=== PATIENT | male | born 1980 | race Caucasian/White ===

== ENCOUNTER 2019-03-22 13:00 | Inpatient (IN) ==
[2019-03-22] MEDS ORDERED: SODIUM CHLORIDE 0.9% 1000ML 2,000 ML IV ONE (13:14)
[2019-03-22 13:33] LABS: Basophils # (auto) 0.03 K/uL (0-0.2); Basophils % (auto) 0.5 %; Eosinophils # (auto) 0.55 K/uL (0-0.5); Eosinophils % (auto) 9.2 %; Hematocrit (blood only) 42.5 % (42-52); Hemoglobin 14.9 g/dL (14.0-18.0); Immature Granulocytes # (auto) 0.01 K/uL (0.00-0.02); Immature Granulocytes % (auto) 0.2 %; Lymphocytes # (auto) 1.79 K/uL (1.2-3.4); Lymphocytes % (auto) 29.9 %; Mean Corpuscular Hgb Conc 35.1 g/dL (32-36); Mean Corpuscular Volume 82.2 fL (80-100); Mean Platelet Volume 9.8 fL (7.4-10.4); Monocytes # (auto) 0.91 K/uL (0.11-0.59); Monocytes % (auto) 15.2 %; Neutrophils # (auto) 2.69 K/uL (1.4-6.5); Platelet Count 248 K/uL (130-400); RDW Coefficient of Variation 14.1 % (11.5-14.5); RDW Standard Deviation 42.3 fL (36.4-46.3); Red Blood Count 5.17 M/uL (4.7-6.1); White Blood Count 5.98 K/uL (4.8-10.8)
[2019-03-22 13:34] LABS: Appearance Urine Clear (Clear); Bilirubin Urine Negative (Negative); Blood Urine Negative (Negative); Color Urine Yellow; Glucose Urine UA Negative (Negative); Ketones Urine Negative (Negative); Leukocyte Esterase Urine Negative (Negative); Nitrite Urine Negative (Negative); Protein Urine Negative (Negative); Specific Gravity Urine 1.006 (1.000-1.030); Urobilinogen Urine Negative (Negative)
[2019-03-22 13:48] LABS: BUN Creatinine Ratio 8.2 (10-20); Calcium 8.7 mg/dl (8.5-10.1); Creatinine Clr Calc Pharmacy 114.7 ml/min; Est GFR (African American) 127.5; Potassium 3.3 mmol/L (3.5-5.1)
[2019-03-22 13:55] LABS: Albumin Level 3.6 gm/dl (3.4-5.0)
[2019-03-22 13:58] LABS: Bilirubin Direct 2.5 mg/dl (0-0.2); Bilirubin,Total 3.1 mg/dl (0.2-1); Total Protein 7.2 gm/dl (6.4-8.2)
--- NOTE | 2019-03-22 14:54 | Ultrasound Report ---
ABDOMINAL ULTRASOUND, RIGHT UPPER QUADRANT HISTORY: ruq abd pain fevers abd jaundice. COMPARISON: None. FINDINGS: Pancreas: The pancreatic head is obscured by overlying bowel gas. The remaining portions of the pancr eas are within normal limits. Liver: The liver is echogenic consistent with fatty change. Gallbladder: No gallbladder wall thickening. No gallstones. CBD: 5 mm. Right kidney: No hydronephrosis. IMPRESSION: 1. Hepatic steatosis. 2. Normal gallbladder. No gallstones. Electronically signed by: Jose Manuel Meneses M.D. 03/22/2019 2:53 PM
[2019-03-22] MEDS ORDERED: PIPERACILLIN/TAZOBACTAM 4.5 GM/120 ML BAG IV ONE (15:06)
[2019-03-22] MEDS ORDERED: PIPERACILL/TAZOBAC CONSULT ACTIVE PRN ×2 (15:06→16:30)
--- NOTE | 2019-03-22 16:14 | History & Physical Report ---
Date of Service March 22, 2019 Assessment & Plan (1) Right upper quadrant abdominal pain: RUQ abdominal pain in a 38 yo male with hyperbilirrubinemia Patient will be admitted to med/surg. Patient will be placed on NPO. Reviewed imaging, no signs of acute cholecystitis Patient does have h.o IV drug use. Will obtain hepatitis panel in AM. Will order MRCP. Will consult GI. Will hold off acetaminophen for now. Given that he does not have an acute abdomen will hold off surgical consult. Updated and patient. Answered all of their questions. DVT: patient will be ambulating. History of Present Illness Primary Care Provider: NO PCP 38 yo male presents to the [facility] with RUQ abdominal pain which occured 3 days ago. Patient went to [facility] and was discharged from the ED as all labs were normal. Today patient developed a fever which was subjective. This was accompanied by lightheadedness and started first at 3 am. Pain then at 8am. It was located at RUQ and radiated to the epigastric region. Pain would last an hour. and have periods of no pain for about a half hour. Pain was sharp. PAIN WAS ABOUT AN 8/10. Throughout the day, pain has been decreasing in intensity however, patient also noticed being jaundiced which prompted the patient to come into the hospital. Allergies Allergy/AdvReac Type Severity Reaction Status Date / Time mold AdvReac Swelling Unverified 03/22/19 13:49 of the Eye Home Medications Home Medications Medication Instructions Recorded Confirmed Type No Known Home Medications 03/22/19 03/22/19 History Past Med/Surg History Medical History No significant past medical history Family History Other No significant family history Social History Preferred Language: Croatian Communication Ability: Effective Cuprous Chloride Helper Required: No Beliefs That Will Affect Care: None marital status: Current Living Situation: Family current occupational status: employed Other Information That Helps Us Care for You: No Feels Safe at Home: Yes Safety Concerns: Feels Safe At This Time Smoking Status: Never smoker Hx Alcohol Use: No Hx Substance Use: No Review of Systems Constitutional: + fever and + body aches; no sweats Eyes: no blind spots and no discharge Ear, Nose, Mouth, Throat: no ear trauma and no sinus pain/pressure Respiratory: no cough, no dyspnea and no pain on inspiration Cardiovascular: no chest pain and no chest pain with activity Gastrointestinal: + nausea; no abdominal pain, no heartburn and no vomiting Musculoskeletal: no back pain Psychiatric: no behavioral changes and no anhedonia Endocrine: + fatigue; no polyphagia and no heat intolerance Hematologic / Lymphatic: no easy bleeding Allergy / Immunological: no lip swelling Physical Exam Constitutional: WD/WN, vitals as above well developed ENMT: external ear and nose normal, oropharynx normal Neck: trachea midline, no thyromegaly Respiratory: normal respiratory effort, lungs clear to auscultation Cardiovascular: RRR, no murmur, no edema Gastrointestinal (Abdomen): Inspection/Auscultation: abdomen normal to inspection Percussion/Palpation: + abdomen tender (RUQ tenderness, no rebound) and abdomen soft; no guarding and abdomen not rigid Musculoskeletal: no cyanosis or clubbing, extremities motor strength 5/5 Skin: no rashes, warm and dry Neurologic: normal touch/pain/proprioception Psychiatric: A+Ox3, euthymic affect Lymphatic: no cervical or axillary lymphadenopathy Results & Data Vital Signs (Past 12 Hours) Vital Signs Temp Pulse Pulse Resp BP BP Pulse Ox 03/22/19 14:47 84 19 115/82 100 03/22/19 13:03 37.3 C 100 H 18 128/83 99
--- NOTE | 2019-03-22 18:26 | Emergency Department Note ---
Entered by Domitila Eugene acting as a scribe for History of Present Illness General Chief complaint: Abdominal Pain Stated complaint: ABD PAIN,FEVER Source: patient History of Present Illness Onset (ago): day(s) 3 Location: abdomen Pain Consistency: + other (persistent) Maximum Pain Intensity: 2 Quality: + dull Exacerbated By: not by eating Associated symptoms: + denies other symptoms (bowel changes) and + other (lightheadedness, change in urine color, excessive thirst, jaundice); no fever/chills The patient is a 38 year old male that is presenting to the Emergency Room with complaints of persistent dull right sided abdominal pain that started 3 days ago . The patient reports that he was seen in the hospital in [place] 3 days ago for extreme abdominal pain but a CT scan, Ultrasound, and blood work showed no acute disease. He states they discharged him with a suspected ulcer. 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 The patient reports that he had a fever of 102F at that time but notes that it has resolved since that time. He states that his last fever was yesterday which was 100.4F. He notes that he has excessive thirst even after drinking 64 oz of water today. He notes feeling mildly lightheaded currently. The patients partner notes that the patient started appearing jaundiced this morning. He denies any bowel changes or dysuria but notes that his urine is bright orange. He denies taking any antibiotics recently and states he has no significant medical history. Home Medications Home Medications Medication Instructions Recorded Confirmed Type No Known Home Medications 03/22/19 03/22/19 History Allergies Allergy/AdvReac Type Severity Reaction Status Date / Time mold AdvReac Swelling Unverified 03/22/19 13:49 of the Eye Past Med/Surg History Medical History No significant past medical history Family History Other No significant family history Social History marital status: Current Living Situation: Spouse current occupational status: employed Feels Safe at Home: Yes Smoking Status: Former smoker Review of Systems See HPI for pertinent positives & negatives. and A total of 10 systems reviewed and were otherwise negative Physical Exam Vital Signs Vital Signs - 24 hr 04/21/19 13:03 03/22/19 14:47 03/22/19 16:23 Temperature 37.3 C Temperature Source Oral Sepsis Recent Fever Within 48 Hours No Sepsis Action Taken by Nursing No Action Required Pulse Rate 100 H Pulse Rate [Right Finger] 84 78 Respiratory Rate 18 19 17 Respiratory Effort / Characteristics Non-Labored Non-Labored Spontaneous Respiratory Depth Normal Normal Respiratory Pattern Regular Blood Pressure 128/83 Blood Pressure [Left Arm] 115/82 107/73 Blood Pressure Mean 98 Blood Pressure Mean [Left Arm] 93 84 Blood Pressure Position Sitting Pulse Oximetry 99 100 98 Oxygen Delivery Method Room Air Room Air Room Air 03/22/19 17:30 Temperature Temperature Source Sepsis Recent Fever Within 48 Hours Sepsis Action Taken by Nursing Pulse Rate 90 Pulse Rate [Right Finger] Respiratory Rate 17 Respiratory Effort / Characteristics Respiratory Depth Respiratory Pattern Blood Pressure 108/73 Blood Pressure [Left Arm] Blood Pressure Mean Blood Pressure Mean [Left Arm] Blood Pressure Position Pulse Oximetry 98 Oxygen Delivery Method Room Air GENERAL: Sitting up in bed, alert, well appearing, well nourished, no distress, non-toxic EYE EXAM: normal conjunctiva, PERRL and EOM's grossly intact. scleral icterus OROPHARYNX: no exudate, no erythema, lips, buccal mucosa, and tongue normal and mucous membranes are moist NECK: supple, no nuchal rigidity, no adenopathy, non-tender LUNGS: Clear to auscultation. Normal chest wall mechanics HEART: no murmurs, S1 normal and S2 normal ABDOMEN: abdomen soft, normo-active bowel sounds, no masses, no rebound or guarding. +tenderness in right upper quadrant. BACK: Back is symmetrical on inspection and there is no deformity, no midline tenderness, no CVA tenderness. SKIN: no rashes and no bruising UPPER EXTREMITIES: upper extremities are grossly normal. LOWER EXTREMITIES: No pitting edema. NEURO EXAM: Normal sensorium, cranial nerves II-XII grossly intact, normal speech, no gross weakness of arms, no gross weakness of legs. Course ED COURSE: Vital signs were reviewed and showed tachycardia. The patients medical record was reviewed The above diagnostic studies were performed and reviewed. ED treatments and interventions as stated above. 1309: The patient was evaluated in room B02. A complete history and physical examination was performed. 1425: I updated the patient on his current lab and imaging results. 1519: I discussed the patient's case with [place] [facility] will evaluate the patient for further management and care. 1525: Upon reevaluation, the patient is resting comfortably. I discussed my findings with the patient and he understands and agrees with the treatment plan. Based on the patients age, coexisting illnesses, exam and lab findings the decision to treat as an inpatient was made. The patient remained stable while under my care. The patient will be evaluated for further management. Administered Medications Discontinued Medications Sodium Chloride (Nss 1000ml) 2,000 mls @ 999 mls/hr IV .Q2H1M ONE Stop: 03/22/19 15:14 Last Infusion: 03/22/19 15:20 Dose: 0 mls/hr Documented by: [id number] Admin: 03/22/19 13:28 Dose: 999 mls/hr Documented by: [id number] Piperacillin Sod/Tazobactam Sod (Zosyn) 4.5 gm in 120 mls @ 240 mls/hr IV NOW ONE Stop: 03/22/19 15:35 Last Infusion: 03/22/19 15:49 Dose: 0 mls/hr Documented by: [id number] Admin: 03/22/19 15:15 Dose: 240 mls/hr Documented by: [id number] Medical Decision Making Differential Diagnosis Differential diagnoses includes but is not limited to gastritis, peptic ulcer disease, GERD, gallbladder disease, pancreatitis, small bowel obstruction, acute coronary syndrome, pericarditis, ischemic bowel, irritable bowel disease, irritable bowel syndrome, appendicitis, diverticulitis, malignancy, hernia, urinary tract infection, torsion, perforation, trauma, infectious. Medical Records Attestation: I reviewed the patient's medical records. Home Medications Current Medication List: was personally reviewed by me Laboratory Data Attestation: I reviewed the patient's lab results. Result diagrams: 03/22/19 13:19 03/22/19 13:19 Lab Results 03/22/19 03/22/19 03/22/19 Range/Units 13:19 13:19 13:25 WBC 5.98 (4.8-10.8) K/uL RBC 5.17 (4.7-6.1) M/uL Hgb 14.9 (14.0-18.0) g/dL Hct 42.5 (42-52) % MCV 82.2 (80-100) fL MCH 28.8 (25-34) pg MCHC 35.1 (32-36) g/dL RDW Std Deviation 42.3 (36.4-46.3) fL RDW Coeff of Sage 14.1 (11.5-14.5) % Plt Count 248 (130-400) K/uL MPV 9.8 (7.4-10.4) fL Immature Gran % (Auto) 0.2 % Neut % (Auto) 45.0 % Lymph % (Auto) 29.9 % [place] % (Auto) 15.2 % Eos % (Auto) 9.2 % Baso % (Auto) 0.5 % Immature Gran # (Auto) 0.01 (0.00-0.02) K/uL Neut # (Auto) 2.69 (1.4-6.5) K/uL Lymph # (Auto) 1.79 (1.2-3.4) K/uL [place] # (Auto) 0.91 H (0.11-0.59) K/uL Eos # (Auto) 0.55 H (0-0.5) K/uL Baso # (Auto) 0.03 (0-0.2) K/uL Sodium 138 (136-145) mmol/L Potassium 3.3 L (3.5-5.1) mmol/L Chloride 105 (98-107) mmol/L Carbon Dioxide 26 (21-32) mmol/L Anion Gap 7.0 (3-11) BUN 7 (7-18) mg/dl Creatinine 0.89 (0.6-1.4) mg/dl Est Cr Clr Drug Dosing 114.7 ml/min Est GFR ( Amer) 127.5 Est GFR (Non-Af Amer) 110.0 BUN/Creatinine Ratio 8.2 L (10-20) Glucose 96 (70-99) mg/dl Calcium 8.7 (8.5-10.1) mg/dl Total Bilirubin 3.1 H (0.2-1) mg/dl Direct Bilirubin 2.5 H (0-0.2) mg/dl AST 85 H (15-37) U/L ALT 190 H (12-78) U/L Alkaline Phosphatase 216 H (45-117) U/L Total Protein 7.2 (6.4-8.2) gm/dl Albumin 3.6 (3.4-5.0) gm/dl Lipase 140 (73-393) U/L Urine Color Yellow Urine Appearance Clear (Clear) Urine pH 7.0 (4.5-7.5) Ur Specific [place] 1.006 (1.000-1.030) Urine Protein Negative (Negative) Urine Glucose (UA) Negative (Negative) Urine Ketones Negative (Negative) Urine Blood Negative (Negative) Urine Nitrite Negative (Negative) Urine Bilirubin Negative (Negative) Urine Urobilinogen Negative (Negative) Ur Leukocyte Esterase Negative (Negative) Imaging Data Radiologist's Impression: Radiology results as stated below per my review and the radiologist's interpretation: ABDOMINAL ULTRASOUND, RIGHT UPPER QUADRANT HISTORY: ruq abd pain fevers abd jaundice. COMPARISON: None. FINDINGS: Pancreas: The pancreatic head is obscured by overlying bowel gas. The remaining portions of the pancreas are within normal limits. Liver: The liver is echogenic consistent with fatty change. Gallbladder: No gallbladder wall thickening. No gallstones. CBD: 5 mm. Right kidney: No hydronephrosis. IMPRESSION: 1. Hepatic steatosis. 2. Normal gallbladder. No gallstones. Electronically signed by: Jose Manuel Meneses M.D. 03/22/2019 2:53 PM Blood Pressure Blood Pressure Findings: Normal blood pressure MDM Narrative Patient is a 38-year-old male who presents the ER for right upper quadrant abdominal pain which is been present since this past Saturday. He notes he has been having fevers of 101-102 intermittently at home. Pain was fairly consisten t but has dissipated slightly. He was seen in outside facility and had a CT and ultrasound done of his right upper quadrant which was unremarkable. He was discharged at that time. Presents today as he notes his eyes have become slightly yellow. On exam he does have scleral icterus. Vitals are u nremarkable. He does admit to fevers. Labs show no significant leukocytosis or anemia. BMP with mild hypokalemia. T bili is elevated at 3.1 with transaminitis in the 1-200s. Alk phos was elevated as well. Lipase was normal. UA was unremarkable. Ultrasound shows a normal gallbladder with a normal CBD at 5 mm. With his symptoms I am concerned for possible choledocholithiasis versus ascending cholangitis as he is having fevers and right upper quadrant pain with a transaminitis and elevated bilirubin. Patient was covered with IV antibiotics and IV fluids. He was updated bedside admit to the hospitalist for further workup. Impression & Plan Choledocholithiasis, Transaminitis, Elevated bilirubin Discharge Plan Visit Data Chief Complaint: Abdominal Pain Stated Complaint: ABD PAIN,FEVER ED Provider: Rafa Alvarado Discharge Problem: Choledocholithiasis, Transaminitis, Elevated bilirubin Patient Disposition: Being Evaluated by Hospitalist Discharge Instructions Interventions: ED Discharge Assessment Last Done: 03/22/19 17:30 The scribe's documentation has been prepared under my direction and personally reviewed by me in its entirety. I confirm that the note above accurately reflects all work, treatment, procedures, and medical decision making performed by me.
[2019-03-22] MEDS: PIPERACILLIN/TAZOBACTAM 3.375 GM in DEXTROSE 5% 100 ML IV SCH (19:58)
[2019-03-22] MEDS ORDERED: NAPROXEN 250 MG TAB PO STA (20:00)
[2019-03-22] MEDS: LACTATED RINGER'S 1,000 ML IV SCH (21:51)
[2019-03-22] MEDS ORDERED: PIPERACILLIN/TAZOBACTAM 3.375 GM in DEXTROSE 5% 100 ML IV SCH (23:30)
[2019-03-23] MEDS ORDERED: LORazepam 0.5 MG/1 ML VIAL IV STA (00:51)
[2019-03-23] MEDS ORDERED: KETOROLAC TROMETHAMINE 15 MG/ML VIAL IV ONE (02:50)
[2019-03-23] MEDS: PIPERACILLIN/TAZOBACTAM 3.375 GM in DEXTROSE 5% 100 ML IV SCH (04:11)
[2019-03-23 06:09] LABS: Basophils # (auto) 0.05 K/uL (0-0.2); Basophils % (auto) 0.9 %; Eosinophils # (auto) 0.74 K/uL (0-0.5); Eosinophils % (auto) 12.6 %; Immature Granulocytes # (auto) 0.01 K/uL (0.00-0.02); Immature Granulocytes % (auto) 0.2 %; Lymphocytes # (auto) 2.19 K/uL (1.2-3.4); Lymphocytes % (auto) 37.2 %; Mean Corpuscular Hgb Conc 34.2 g/dL (32-36); Mean Corpuscular Volume 82.6 fL (80-100); Monocytes % (auto) 11.9 %; Neutrophils # (auto) 2.19 K/uL (1.4-6.5); Neutrophils % (auto) 37.2 %; Platelet Count 227 K/uL (130-400); RDW Coefficient of Variation 14.4 % (11.5-14.5); RDW Standard Deviation 43.5 fL (36.4-46.3); White Blood Count 5.88 K/uL (4.8-10.8)
[2019-03-23 06:19] LABS: INR 1.1 (0.9-1.1)
[2019-03-23 06:43] LABS: BUN Creatinine Ratio 11.1 (10-20); Calcium 8.3 mg/dl (8.5-10.1); Creatinine Clr Calc Pharmacy 118.7 ml/min; Est GFR (African American) 129.3; Est GFR (Non-African American) 111.6; Potassium 3.6 mmol/L (3.5-5.1)
[2019-03-23 06:48] LABS: Bilirubin,Total 1.6 mg/dl (0.2-1)
[2019-03-23] MEDS: LACTATED RINGER'S 1,000 ML IV SCH ×2 (07:09→15:46)
--- NOTE | 2019-03-23 07:23 | Magnetic Resonance Report ---
MR MRCP HISTORY: 38 years-old Male ruq pain, acute right upper quadrant abdominal pain with fever and jaundi ce. COMPARISON: Right upper quadrant abdominal ultrasound 03/22/2019. TECHNIQUE: MRCP without the use of IV contrast was obtained according to institutional protocol. FINDINGS: The linoleum mechanic localizer images demonstrate no gross abnormality about the lower chest. The kidneys, splee n, pancreas, liver and bowel appear unremarkable. Aorta is unremarkable. No adenopathy identified. So ft tissues are unremarkable. Gallbladder is partially distended and demonstrates mild wall thickening measuring up to 5 mm. No cholelithiasis identified. No free fluid. Common bile duct is normal, 5 mm. No intrahepatic biliary ductal dilation. No pancreatic ductal dilation or pancreatic divisum. No yari ling defects within the biliary tree. No evidence of choledocholithiasis. IMPRESSION: Mild gallbladder wall thickening without cholelithiasis, biliary ductal dilation or choledocholithias is. The above report was generated using voice recognition software. It may contain grammatical, syntax o r spelling errors. Dictated: 03/23/2019 7:16 AM Transcribed: 03/23/2019 7:22 AM Kera [id number] [email or web address] Eduardo Electronically signed by: Tony Negrete M.D. 03/23/2019 7:51 AM
[2019-03-23 09:30] LABS: Hepatitis B Surface Antigen Neg (Neg)
[2019-03-23] MEDS ORDERED: AMPICILLIN/SULBACTAM SOD 3,000 MG in 0.9 % SODIUM CHLORIDE 100 ML IV SCH (12:00)
--- NOTE | 2019-03-23 17:44 | Consultation Report ---
DATE OF CONSULTATION: 03/23/2019 REASON FOR EVALUATION: Abnormal liver test and right upper quadrant pain. HISTORY OF PRESENT ILLNESS: The patient is a 38-year-old male who came to the hospital with right upper quadrant pain and mild jaundice. He also had low grade fever for about 3 days. When he was admitted to the hospital, his liver tests were noted to be abnormal and he underwent an ultrasound and an MRCP, both of which showed his liver and bile ducts to be normal. His gallbladder also looked normal. Subsequent testing showed him to be positive for hepatitis C antibody. On further questioning, the patient admits to be using intravenous drugs more than 15 years ago, but none since that time. He has never tested for hepatitis C and has been otherwise relatively asymptomatic. PAST MEDICAL HISTORY: Negative. MEDICATIONS: None. ALLERGIES: MOLD. FAMILY HISTORY: Negative. SOCIAL HISTORY: The patient is . He has 2 sons. 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 Does not smoke, does not drink any alcohol. REVIEW OF SYSTEMS: Positive for body aches and fever and some nausea and fatigue. Remainder is negative. PHYSICAL EXAMINATION: GENERAL: The patient appears in no acute distress. HEENT: He has large holes in his ear lobes from where they previously pierced. ABDOMEN: Soft. There was some mild tenderness in the upper gastric area and right upper quadrant. No masses or rebound. IMPRESSION AND PLAN: The patient has abnormal liver tests with positive serology for hepatitis C. I suspect that he has chronic hepatitis C. I think his fever recently is probably from an intercurrent infection of some other kind and it just exacerbated his hepatitis C blood test. At this point, I plan on getting hepatitis C RNA quantitatively. We will get genotype and FibroTest. Once we have this information from the reference lab, should take about a week. We should be able to offer him a treatment, most treatments now are 12 weeks and offer about 97%-98% cure rate. This can be arranged as an outpatient once he is discharged through our office.
--- NOTE | 2019-03-23 17:52 | Surgery Consultation ---
Date of Consultation March 23, 2019 Assessment & Plan (1) Right upper quadrant abdominal pain: 38 year-old male who presented to emergency room with complaint of fever, RUQ abdominal pain, and jaundice that began with fever and almost passing out. Emergency room work-up showed elevated t. bili and lfts. Ultrasound showing no stones nor evidence of acute cholecystitis. MRCP showing no gallstones, choledocholithiasis or signs of biliary obstruction. Hepatitis C antibiody preliminary is positive. Plan: RUQ pain is likely due to hepatitis and not acute cholecystitis. There is no evidence of pericholecystic fluid, significant edema, stones, or biliary obstruction on imaging. He has no leukocytosis. His alk phos and T. bili have improved which is less concerning for biliary obstruction. Recommend further work-up of hepatitis as there is no clear indication for cholecystectomy at this time may have clear liquids continue medical management Dr. Phan to see patient later today, see addendum for further recommendations/plan (2) Transaminitis: (3) Elevated bilirubin: Supervising Physician Co-Signing Physician Notes I have seen and evaluated the patient and reviewed the medical record. I agree with the documentation as provided in this note by Nela Cox PA-C. History of Present Illness Reason for Consultation: RUQ abdominal pain elevated lfts elevated t. bili Requesting Physician: Ridge Briones Attending Physician: Ridge Briones History of Present Illness 38 year-old male who presented to emergency room with complaint of fever, RUQ abdominal pain, and jaundice. States morning he noticed lightheadedness and fever. States he almost passed out. States he then developed severe RUQ abdominal pain that took him to the emergency department in [place] in which he had a CT scan of the abdomen and pelvis and lab work in which he states of all normal and was sent home. States he was feeling better throughout the weekend and noticed that his eyes were yellow yesterday which brought him to the hospital. He states he has intermittent RUQ pain yesterday but not as severe as what it was previously. Associated nausea but no vomiting. States his last bowel movement was Saturday morning. Normal. Denies of any vomiting, chest pain, shortness of breath, bloody stools, black/tarry stools. ER work-up included labs which showed no leukocytosis but his T. bili and LFTS were elevated. T. bili was 3.1, AST 85, ALT 190, Alk 216. Ultrasound showed no gallstones, no wall thickening, no pericholecystic fluid, and CBD measured 5 mm in size. MRCP showed mild walk thickening at 5 mm however no gallstones, choledocholithiasis, and CBD again at 5 mm. Patient did not elude to this during my examination but per records does have history of IV drug abuse about 15 years ago. Allergies Allergy/AdvReac Type Severity Reaction Status Date / Time mold AdvReac Swelling Unverified 03/22/19 13:49 of the Eye Home Medications Home Medications Medication Instructions Recorded Confirmed Type No Known Home Medications 03/22/19 03/22/19 History Patient History Medical History No significant past medical history Family History Other No significant family history Social History Preferred Language: Uzbek Communication Ability: Effective Shirt Trimmer Required: No Beliefs That Will Affect Care: None marital status: Current Living Situation: Family current occupational status: employed Other Information That Helps Us Care for You: No Feels Safe at Home: Yes Safety Concerns: Feels Safe At This Time Smoking Status: Never smoker Hx Alcohol Use: No Hx Substance Use: No Review of Systems Review of Systems: All systems reviewed & are unremarkable except as noted in HPI & below Physical Exam Constitutional: WD/WN, vitals as above no acute distress and not ill appearing eyes mildly icteric Respiratory: normal respiratory effort, lungs clear to auscultation Cardiovascular: RRR, no murmur, no edema Gastrointestinal (Abdomen): Inspection/Auscultation: abdomen normal to inspection and normal bowel sounds; abdomen not distended Percussion/Palpation: + abdomen tender (mild tenderness in RUQ, negative Ivy's) and abdomen soft; no guarding and abdomen not rigid Skin: no rashes, warm and dry Psychiatric: A+Ox3, euthymic affect Results & Data Vital Signs (Past 12 Hours) Vital Signs Temp Pulse Resp BP BP Pulse Ox 03/23/19 15:44 36.8 C 86 18 113/77 99 03/23/19 07:29 36.9 C 67 18 119/78 98 Laboratory Results 03/23/19 03/23/19 03/23/19 Range/Units 05:38 05:38 05:38 WBC 5.88 (4.8-10.8) K/uL RBC 4.60 L (4.7-6.1) M/uL Hgb 13.0 L (14.0-18.0) g/dL Hct 38.0 L (42-52) % MCV 82.6 (80-100) fL MCH 28.3 (25-34) pg MCHC 34.2 (32-36) g/dL RDW Std Deviation 43.5 (36.4-46.3) fL RDW Coeff of Sage 14.4 (11.5-14.5) % Plt Count 227 (130-400) K/uL MPV 10.0 (7.4-10.4) fL Immature Gran % (Auto) 0.2 % Neut % (Auto) 37.2 % Lymph % (Auto) 37.2 % [place] % (Auto) 11.9 % Eos % (Auto) 12.6 % Baso % (Auto) 0.9 % Immature Gran # (Auto) 0.01 (0.00-0.02) K/uL Neut # (Auto) 2.19 (1.4-6.5) K/uL Lymph # (Auto) 2.19 (1.2-3.4) K/uL [place] # (Auto) 0.70 H (0.11-0.59) K/uL Eos # (Auto) 0.74 H (0-0.5) K/uL Baso # (Auto) 0.05 (0-0.2) K/uL PT (9.0-12.0) Seconds INR (0.9-1.1) Sodium 141 (136-145) mmol/L Potassium 3.6 (3.5-5.1) mmol/L Chloride 111 H (98-107) mmol/L Carbon Dioxide 26 (21-32) mmol/L Anion Gap 4.0 (3-11) BUN 10 (7-18) mg/dl Creatinine 0.86 (0.6-1.4) mg/dl Est Cr Clr Drug Dosing 118.7 ml/min Est GFR ( Amer) 129.3 Est GFR (Non-Af Amer) 111.6 BUN/Creatinine Ratio 11.1 (10-20) Glucose 87 (70-99) mg/dl Calcium 8.3 L (8.5-10.1) mg/dl Total Bilirubin 1.6 H (0.2-1) mg/dl AST 71 H (15-37) U/L ALT 159 H (12-78) U/L Alkaline Phosphatase 199 H (45-117) U/L Total Protein 6.0 L (6.4-8.2) gm/dl Albumin 3.0 L (3.4-5.0) gm/dl Globulin 3.0 (2.5-4.0) gm/dl Albumin/Globulin Ratio 1.0 (0.9-2) Hepatitis A IgM Ab Pending Hep Bs Antigen (Neg) Hep B Core IgM Ab Pending Hepatitis C Antibody (Neg) HCV RNA Qual (TMA) Pending 03/23/19 03/23/19 Range/Units 05:38 05:38 WBC (4.8-10.8) K/uL RBC (4.7-6.1) M/uL Hgb (14.0-18.0) g/dL Hct (42-52) % MCV (80-100) fL MCH (25-34) pg MCHC (32-36) g/dL RDW Std Deviation (36.4-46.3) fL RDW Coeff of Sage (11.5-14.5) % Plt Count (130-400) K/uL MPV (7.4-10.4) fL Immature Gran % (Auto) % Neut % (Auto) % Lymph % (Auto) % [place] % (Auto) % Eos % (Auto) % Baso % (Auto) % Immature Gran # (Auto) (0.00-0.02) K/uL Neut # (Auto) (1.4-6.5) K/uL Lymph # (Auto) (1.2-3.4) K/uL [place] # (Auto) (0.11-0.59) K/uL Eos # (Auto) (0-0.5) K/uL Baso # (Auto) (0-0.2) K/uL PT 11.0 (9.0-12.0) Seconds INR 1.1 (0.9-1.1) Sodium (136-145) mmol/L Potassium (3.5-5.1) mmol/L Chloride (98-107) mmol/L Carbon Dioxide (21-32) mmol/L Anion Gap (3-11) BUN (7-18) mg/dl Creatinine (0.6-1.4) mg/dl Est Cr Clr Drug Dosing ml/min Est GFR ( Amer) Est GFR (Non-Af Amer) BUN/Creatinine Ratio (10-20) Glucose (70-99) mg/dl Calcium (8.5-10.1) mg/dl Total Bilirubin (0.2-1) mg/dl AST (15-37) U/L ALT (12-78) U/L Alkaline Phosphatase (45-117) U/L Total Protein (6.4-8.2) gm/dl Albumin (3.4-5.0) gm/dl Globulin (2.5-4.0) gm/dl Albumin/Globulin Ratio (0.9-2) Hepatitis A IgM Ab Hep Bs Antigen Neg (Neg) Hep B Core IgM Ab Hepatitis C Antibody Prelim Pos H (Neg) HCV RNA Qual (TMA) Diagnostic Findings ABDOMINAL ULTRASOUND, RIGHT UPPER QUADRANT HISTORY: ruq abd pain fevers abd jaundice. COMPARISON: None. FINDINGS: Pancreas: The pancreatic head is obscured by overlying bowel gas. The remaining portions of the pancreas are within normal limits. Liver: The liver is echogenic consistent with fatty change. Gallbladder: No gallbladder wall thickening. No gallstones. CBD: 5 mm. Right kidney: No hydronephrosis. IMPRESSION: 1. Hepatic steatosis. 2. Normal gallbladder. No gallstones. MRCP HISTORY: 38 years-old Male ruq pain, acute right upper quadrant abdominal pain with fever and jaundice. COMPARISON: Right upper quadrant abdominal ultrasound 03/22/2019. TECHNIQUE: MRCP without the use of IV contrast was obtained according to institutional protocol. 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 The kidneys, spleen, pancreas, liver and bowel appear unremarkable. Aorta is unremarkable. No adenopathy identified. Soft tissues are unremarkable. Gallbladder is partially distended and demonstrates mild wall thickening measuring up to 5 mm. No cholelithiasis identified. No free fluid. Common bile duct is normal, 5 mm. No intrahepatic biliary ductal dilation. No pancreatic ductal dilation or pancreatic divisum. No filling defects within the biliary tree. No evidence of choledocholithiasis. IMPRESSION: Mild gallbladder wall thickening without cholelithiasis, biliary ductal dilation or choledocholithiasis.
--- NOTE | 2019-03-23 22:52 | Hospitalist Progress Note ---
Date of Service March 23, 2019 Assessment & Plan (1) Right upper quadrant abdominal pain: RUQ abdominal pain in a 38 yo male with hyperbilirrubinemia Patient will be admitted to med/surg. Patient will be placed on NPO. Reviewed imaging, no signs of acute cholecystitis Patient does have h.o IV drug use. MRCP was essentially neg. More info below. DVT: patient will be ambulating. (2) Hepatitis C antibody positive in blood: Likely cause of his symptoms. MRCP complete, only mild wall thickening of gallbladder. Patient will be started on a clear liquid diet and will advance slowly. D/W surgery no need for cholecystectomy. Will wait confirmatory test for hep. c Will monitor how patient tolerates diet. Will recheck blood work in AM. Bilirrubin is decreasing. (3) H/O intravenous drug use in remission: NO LONGER USING DRUGS. Spent 35 minutes in manag[employer]net of patient. Subjective This is a 38 yo male who reports feeling hungry. He states he had no appetite yesterday. He is asking about his hepatitis panel. He reports that he has history of IV drug abuse but stopped over a decade ago. He has children with his who has been tested fro hepatitis and has been negative. He reports today that his pain is milder as well. Review of Systems Constitutional: + fever and + body aches; no sweats Gastrointestinal: + nausea; no abdominal pain, no heartburn and no vomiting Endocrine: + fatigue; no polyphagia and no heat intolerance Physical Exam Constitutional: WD/WN, vitals as above well developed ENMT: external ear and nose normal, oropharynx normal Neck: trachea midline, no thyromegaly Respiratory: normal respiratory effort, lungs clear to auscultation Cardiovascular: RRR, no murmur, no edema Gastrointestinal (Abdomen): Inspection/Auscultation: abdomen normal to inspection Percussion/Palpation: + abdomen tender (RUQ tenderness, no rebound) and abdomen soft; no guarding and abdomen not rigid Musculoskeletal: no cyanosis or clubbing, extremities motor strength 5/5 Skin: no rashes, warm and dry Neurologic: normal touch/pain/proprioception Psychiatric: A+Ox3, euthymic affect Lymphatic: no cervical or axillary lymphadenopathy Results & Data Vital Signs (Past 12 Hours) Vital Signs Temp Pulse Resp BP Pulse Ox 03/23/19 15:44 36.8 C 86 18 113/77 99
[2019-03-24 06:45] LABS: Basophils # (auto) 0.02 K/uL (0-0.2); Basophils % (auto) 0.3 %; Eosinophils # (auto) 0.67 K/uL (0-0.5); Eosinophils % (auto) 9.9 %; Hematocrit (blood only) 39.3 % (42-52); Hemoglobin 13.6 g/dL (14.0-18.0); Immature Granulocytes # (auto) 0.04 K/uL (0.00-0.02); Immature Granulocytes % (auto) 0.6 %; Lymphocytes # (auto) 2.46 K/uL (1.2-3.4); Lymphocytes % (auto) 36.5 %; Mean Corpuscular Hgb Conc 34.6 g/dL (32-36); Mean Corpuscular Volume 81.9 fL (80-100); Mean Platelet Volume 9.7 fL (7.4-10.4); Monocytes # (auto) 0.84 K/uL (0.11-0.59); Monocytes % (auto) 12.5 %; Neutrophils # (auto) 2.71 K/uL (1.4-6.5); Neutrophils % (auto) 40.2 %; Platelet Count 266 K/uL (130-400); RDW Coefficient of Variation 14.4 % (11.5-14.5); RDW Standard Deviation 43.3 fL (36.4-46.3); White Blood Count 6.74 K/uL (4.8-10.8)
[2019-03-24 07:19] LABS: BUN Creatinine Ratio 11.9 (10-20); Calcium 8.8 mg/dl (8.5-10.1); Creatinine Clr Calc Pharmacy 139.9 ml/min; Est GFR (African American) 138.3; Est GFR (Non-African American) 119.3; Potassium 3.8 mmol/L (3.5-5.1)
[2019-03-24 08:49] LABS: Albumin Level 3.4 gm/dl (3.4-5.0); Bilirubin Direct 0.5 mg/dl (0-0.2); Bilirubin,Total 1.4 mg/dl (0.2-1)
[2019-03-24] MEDS ORDERED: Nursing to Pharmacy Communication ONE (11:02)
[2019-03-24] MEDS: LACTATED RINGER'S 1,000 ML IV SCH (13:00)
--- NOTE | 2019-03-24 14:46 | Communication Note ---
Date of Service: March 24, 2019 Still awaiting further lab results for hepatitis. Patient will need follow-up with GI as an outpatient for further treatment. Recommend referral to surgery if indicated. Our services signing off at this time, call with any questions or concerns
[2019-03-28 15:07] LABS: Hepatitis C Genotype Not Detected; Hepatitis C Vira RNA (Log) PCR <1.18 NOT DETECTED LOG IU/ML (<1.18); Hepatitis C Viral RNA by PCR <15 NOT DETECTED IU/ML (<15); Liver Fibrosis ALT 143 U/L (9-46); Liver Fibrosis Haptoglobin 229 mg/dL (43-212); Liver Fibrosis Score 0.57; Liver Fibrosis Total Bilirubin 1.8 mg/dL (0.2-1.2)
--- NOTE | 2019-03-31 23:49 | Discharge Summary ---
Date of Service March 24, 2019 Admission HPI Per Admitting Provider 38 yo male presents to the [facility] with RUQ abdominal pain which occured 3 days ago. Patient went to [facility] and was discharged from the ED as all labs were normal. Today patient developed a fever which was subjective. This was accompanied by lightheadedness and started first at 3 am. Pain then at 8am. It was located at RUQ and radiated to the epigastric region. Pain would last an hour. and have periods of no pain for about a half hour. Pain was sharp. PAIN WAS ABOUT AN 8/10. Throughout the day, pain has been decreasing in intensity however, patient also noticed being jaundiced which prompted the patient to come into the hospital. Principal Diagnosis Hep C Discharge Exam Constitutional WD/WN, vitals as above well developed ENMT external ear and nose normal, oropharynx normal Neck trachea midline, no thyromegaly Respiratory normal respiratory effort, lungs clear to auscultation Cardiovascular RRR, no murmur, no edema Gastrointestinal (Abdomen) Inspection/Auscultation: abdomen normal to inspection Percussion/Palpation: + abdomen tender (RUQ tenderness, no rebound) and abdomen soft; no guarding and abdomen not rigid Musculoskeletal no cyanosis or clubbing, extremities motor strength 5/5 Skin no rashes, warm and dry Neurologic normal touch/pain/proprioception Psychiatric A+Ox3, euthymic affect Lymphatic no cervical or axillary lymphadenopathy Discharge Data Allergies Allergy/AdvReac Type Severity Reaction Status Date / Time mold AdvReac Swelling Unverified 03/22/19 13:49 of the Eye Consultations 03/22/19 15:08 ED Decision to Admit Stat 03/22/19 16:19 Consult Gastroenterology Routine 03/23/19 09:44 Consult General Surgery Routine Ordered Studies 03/22/19 13:14 US gallbladder Stat 03/23/19 00:06 MR MRCP Routine Hospital Course (1) Right upper quadrant abdominal pain: RUQ abdominal pain in a 38 yo male with hyperbilirrubinemia Patient will be admitted to med/surg. Patient was placed on NPO. Reviewed imaging, no signs of acute cholecystitis Patient does have h.o IV drug use. MRCP was essentially neg. More info below. Improved on day of discharge and tolerated diet. as noted below, likely hep C. Will f/u with ID for treatment DVT: patient will be ambulating. (2) Hepatitis C antibody positive in blood: Likely cause of his symptoms. MRCP complete, only mild wall thickening of gallbladder. Patient will be started on a clear liquid diet and will advance slowly. D/W surgery no need for cholecystectomy. Will wait confirmatory test for hep. c Will monitor how patient tolerates diet. Will recheck blood work in AM. Bilirrubin is decreasing. (3) H/O intravenous drug use in remission: NO LONGER USING DRUGS. Total Time Total Time Spent Total Time Spent (In Minutes): 32 Total Time Includes: Examination of the Patient, Discharge Planning and Medication Reconciliation Discharge Plan Discharge Items Patient Disposition: Home - Self-Care Reason For Visit: RIGHT UPPER QUADRANT PAIN Discharge Diagnosis: Right upper quadrant abd. pain/ Hep C Discharge Goals: Decrease discomfort Activity: Resume your previous activity Non-emergency contact: Primary Care Provider Call non-emergency contact if: you have any medication questions Follow-up/Referrals: Zeenat Carrasco DO [Physician] - 04/01/19 10:40 am (Please, follow up at [facility] Infectious Disease Office with Dr. Zeenat Carrasco on SaturdayApril 01 at 11:00 am (arrive 10:40 am). *The office is located in [address] of [facility]. This is the big building next to this [facility]. If you need to reschedule this appointment, call the office at [phone].) Wilfrido Álvarez [Physician] - 05/07/19 12:30 pm (Please, follow up at [facility] Gastroenterology Office with Dr. Wilfrido Álvarez on May 07 at 12:45 pm (arrive 12:30 pm). *They are going to add your name to a wait-list and call you, if an earlier appointment becomes available. The office is located at [address] [place] [address] in [place]. This is next to [facility]. If you have any questions, call the office at [phone].) Brianna Richard PA-C [Outside Practitioners] - 03/31/19 10:20 am (Please, follow up at [facility] with Brianna Richard PA-C on SaturdayMarch 31 at 10:20 am. *If you need to change this appointment, call the office at [phone].) Diet: Low Fat Addtl Provider Instructions: You will follow up with infectious disease for your Hep C. And will f/u with GI in May. Nathen send blood test Prescriptions: No Action No Known Home Medications RF: 0 Stand-Alone Forms: Call Back Authorization, [facility] Discharge Orders: Discharge Order (Routine); Ordered 03/24/19 Ordered By: Ridge Briones Admission Data Admit Date/Time: 03/22/19 16:27 Attending Provider: Ridge Briones Admit Provider: Ridge Briones Primary Care Provider: Addi Ford Other Providers: Ed Geller ; Joellen Phan Service: Medical Other Interventions: Discharge Summary Assessment (RN) Last Done: 03/24/19 15:41 DC Date/Time DO NOT enter until pt leaves facility: 03/24/19 16:15
== END 2019-03-24 16:15 | disposition home or self-care (01) | DRG 443 ==
LOC: ED 13:00 → 4W 16:27
DX: Z87.891 Personal history of nicotine dependence; Z91.048 Other nonmedicinal substance allergy status; B18.2 Chronic viral hepatitis C; Z86.59 Personal history of other mental and behavioral disorders; E87.6 Hypokalemia